=== PATIENT | female | born 1975 | race Caucasian/White ===

== ENCOUNTER 2017-08-24 20:07 | Emergency (ER) | payer MEDICAID, OTHER ==
[~2017-08-24] VITALS: Ht 165.1 cm; Wt 69.5 kg
[2017-08-24 21:23] LABS: HEMATOCRIT 46.2 % (34.6-47.8); HEMOGLOBIN 15.9 g/dL (11.7-16.4); WHITE BLOOD COUNT 10.1 x10^3/uL (3.4-10)
[2017-08-24] MEDS ORDERED: PROVENTIL (21:24)
[2017-08-24] MEDS ORDERED: KETOROLAC 30 MG/1 ML ONE (21:29)
[2017-08-24] MEDS ORDERED: KETOROLAC 30 MG/1 ML IM ONE (21:30)
[2017-08-24 21:35] LABS: BLOOD UREA NITROGEN 12 mg/dL (7-18)
[2017-08-24 21:46] LABS: IS PT STATUS REG ER OR PRE ER? YES
[2017-08-24 21:54] VITALS: BP 117/82
== END 2017-08-24 21:57 | disposition home or self-care (01) ==
LOC: ED 21:51
DX: R09.1 Pleurisy (principal); J45.909 Unspecified asthma, uncomplicated; F17.200 Nicotine dependence, unspecified, uncomplicated; Z86.718 Personal history of other venous thrombosis and embolism
CPT/HCPCS: 36415; 71020; 80048; 82040; 84484; 85025; 93005; 96372; 99285; J1885

== ENCOUNTER 2017-10-30 03:39 | Emergency (ER) | payer OTHER ==
[~2017-10-30] VITALS: Ht 165.1 cm; Wt 65.0 kg
[~2017-10-30 03:39] MED LIST: PROVENTIL
[2017-10-30 03:45] VITALS: BP 134/70
[2017-10-30] MEDS ORDERED: LIDOCAINE 1%, 10ML ONE (03:48)
[2017-10-30] MEDS ORDERED: BACITRACIN ZINC OINT 500U/GM, 0.9 GM ONE (04:22)
[2017-10-30] MEDS ORDERED: DIPH,PERTUSS(ACELL),TET VAC/PF 0.5 ML IM-VACC ONE ×3 (04:29→04:30)
[2017-10-30] MEDS ORDERED: LIDOCAINE 1%, 20ML SQ ONE (04:30)
== END 2017-10-30 04:58 | disposition home or self-care (01) ==
LOC: ED 04:52
DX: S61.213A Laceration without foreign body of left middle finger without damage to nail, initial encounter (principal); F17.200 Nicotine dependence, unspecified, uncomplicated; J45.909 Unspecified asthma, uncomplicated; X58.XXXA Exposure to other specified factors, initial encounter; Y93.89 Activity, other specified; Y92.89 Other specified places as the place of occurrence of the external cause; Y99.8 Other external cause status
CPT/HCPCS: 12002; 90471; 90715

== ENCOUNTER 2021-04-15 08:50 | Emergency (ER) | payer MEDICAID, OTHER ==
[~2021-04-15] VITALS: Ht 165.1 cm; Wt 63.5 kg
[2021-04-15 09:30] LABS: BASOPHILS % (AUTO) 2 % (0-1); EOSINOPHILS % (AUTO) 3 % (1-7); LYMPHOCYTES % (AUTO) 37 % (22-44); MEAN CORPUSCULAR HEMOGLOBIN 30.1 pg (27.0-34.8); MEAN CORPUSCULAR HGB CONC 34.4 g/dL (32.4-35.8); MEAN PLATELET VOLUME 7.6 fL (7.4-10.4); MONOCYTES % (AUTO) 10 % (2-9); NEUTROPHILS % (AUTO) 48 % (42-75); PLATELET COUNT 402 x10^3/uL (130-400); RED BLOOD COUNT 5.29 x10^6/uL (3.82-5.3); RED CELL DISTRIBUTION WIDTH 14.9 % (9.6-15.2)
[2021-04-15] MEDS ORDERED: SODIUM CHLORIDE FLUSH 10ML SYR IVF ONE (09:30)
[2021-04-15 09:41] LABS: ALBUMIN 3.5 g/dL (3.4-5.0); ANION GAP 7 mmol/L (5-15); CALCIUM 9.5 mg/dL (8.5-10.1); CHLORIDE 109 mmol/L (98-107); CREATININE 0.75 mg/dL (0.55-1.02)
--- NOTE | 2021-04-15 09:55 | NUR ---
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
--- NOTE | 2021-04-15 10:36 | NUR ---
CT AWAITING IV
--- NOTE | 2021-04-15 10:43 | NUR ---
PT STATES WAS DIAGNOSED WITH STREP THROAT AND WAS TAKING ABX AND WAS ON THE 4TH OF A 10 DAY TREAMENT AND SKIPPED A COUPLE DAYS STARTED BACK UP AND ON WEDNESDAY RIGHT SIDE OF NECK STARTED TO SWELL WITH A HEADACHE.
--- NOTE | 2021-04-15 11:21 | NUR ---
PT IS ON THEIR WAY TO CT AFTER IV STARTED RECENTLY
[2021-04-15] MEDS ORDERED: OMNIPAQUE 350 MG/ML, 100ML BOTTLE ONE (11:35)
--- NOTE | 2021-04-15 11:58 | NUR ---
PROVIDER AT BEDSIDE TO DISCUSS PLAN OF CARE.
[2021-04-15 12:10] LABS: BASOPHILS % (AUTO) 1 % (0-1); EOSINOPHILS % (AUTO) 3 % (1-7); LYMPHOCYTES % (AUTO) 36 % (22-44); MEAN CORPUSCULAR HEMOGLOBIN 29.5 pg (27.0-34.8); MEAN CORPUSCULAR HGB CONC 33.5 g/dL (32.4-35.8); MEAN PLATELET VOLUME 7.6 fL (7.4-10.4); MONOCYTES % (AUTO) 10 % (2-9); NEUTROPHILS % (AUTO) 50 % (42-75); PLATELET COUNT 387 x10^3/uL (130-400); RED BLOOD COUNT 5.13 x10^6/uL (3.82-5.3); RED CELL DISTRIBUTION WIDTH 14.9 % (9.6-15.2)
[2021-04-15 12:20] LABS: INTERNATIONAL NORMALIZED RATIO 0.96 (0.93-1.1); PROTHROMBIN TIME 10.3 Seconds (9.6-11.5)
[2021-04-15 12:36] VITALS: BP 138/85
== END 2021-04-15 12:39 | disposition home or self-care (01) ==
LOC: ED 10:11
DX: J03.00 Acute streptococcal tonsillitis, unspecified (principal); K11.21 Acute sialoadenitis; R59.0 Localized enlarged lymph nodes; J45.909 Unspecified asthma, uncomplicated; F17.210 Nicotine dependence, cigarettes, uncomplicated
CPT/HCPCS: 36415; 70491; 80048; 82040; 84703; 85025; 85610; 99285; Q9967